=== PATIENT | male | born 1930 | race Caucasian/White ===

== ENCOUNTER 2017-09-08 08:13 | Inpatient (IN) ==
[2017-09-06 17:30] LABS: Basophils # (Auto) 0 K/mcL (0.0-0.3); Basophils % (Auto) 0.5 % (0.0-2.0); Eosinophils # (Auto) 0.4 K/mcL (0.0-0.7); Eosinophils % (Auto) 4.3 % (0.0-7.0); Granulocytes % (Auto) 59.7 % (38.0-78.0); Lymphocytes # (Auto) 1.8 K/mcL (1.5-4.8); Mean Cell Volume 91.8 fL (80.0-100.0); Mean Corpuscular HGB Conc 33.5 g/dL (31.0-36.0); Mean Corpuscular Hemoglobin 30.7 pg (26.0-34.0); Monocytes # (Auto) 1.1 K/mcL (0.1-0.9); Monocytes % (Auto) 13.5 % (1.0-12.0); Platelet Count 346 K/mcL (140-440); RBC 4.91 M/mcL (4.50-5.90); Red Cell Distribution Width 13.9 % (11.5-14.5)
[2017-09-06 17:50] LABS: Blood Urea Nitrogen 21 mg/dl (8-23)
[2017-09-06 17:57] LABS: Appearance,Urine CLEAR; Bacteria,Urine 0 /hpf (0); Bilirubin,Urine NEG (NEG); Color,Urine YELLOW; Glucose,Urine (UA) NEGATIVE (NEG); Leukocyte Esterase,Urine NEG /uL (NEG); Mucus,Urine MANY /hpf (0); Nitrate,Urine NEG (NEG); Protein,Urine NEG (NEG); Specific Gravity,Urine 1.027 (1.000-1.035); Urine Blood NEG mg/dL (<0.03); Urine RBC < 1 /hpf (0-1); Urine Squamous Epithelial Cell 0 /hpf (0-4); Urine WBC 1 /hpf (0-4)
[2017-09-08] MEDS ORDERED: 0.9 % SODIUM CHLORIDE 250 ML IV SCH (08:30)
[2017-09-08] MEDS ORDERED: oxyCODONE 10 MG TAB.ER.12H PO SCH (08:45)
[2017-09-08] MEDS ORDERED: CELECOXIB 200 MG CAPSULE PO SCH (08:45)
[2017-09-08] MEDS ORDERED: KETOROLAC 30 MG, ROPIVACAINE HCL/PF 49.5 ML, EPINEPHrine 0.5 MG, 0.9 % SODIUM CHLORIDE ... IJ ONE (09:00)
[2017-09-08] MEDS ORDERED: PREGABALIN 75 MG CAPSULE PO SCH (09:00)
[2017-09-08] MEDS ORDERED: ceFAZolin 1 GM VIAL IV SCH (09:00)
[2017-09-08] MEDS ORDERED: GLYCOPYRROLATE 0.2 MG/ML VIAL IV ONE (13:40)
[2017-09-08] MEDS ORDERED: ROPIVACAINE HCL/PF 20 ML VIAL IJ ONE (13:40)
[2017-09-08] MEDS ORDERED: LIDOCAINE HCL/PF 100 MG/5 ML SYRINGE IV ONE (13:40)
[2017-09-08] MEDS ORDERED: ePHEDrine 50 MG/ML AMPUL IV ONE (13:40)
[2017-09-08] MEDS ORDERED: MIDAZOLAM 5 MG/5 ML VIAL IV ONE (13:40)
[2017-09-08] MEDS ORDERED: DEXAMETHASONE 10 MG/ML VIAL IV ONE (13:40)
[2017-09-08] MEDS ORDERED: PHENYLEPHRINE 10 MG/ML VIAL IV ONE (13:40)
[2017-09-08] MEDS ORDERED: TRANEXAMIC ACID 1,000 MG/10 ML VIAL IV ONE (13:40)
[2017-09-08] MEDS ORDERED: PROPOFOL 200 MG/20 ML VIAL IV ONE (13:40)
[2017-09-08] MEDS ORDERED: ONDANSETRON 4 MG/2 ML VIAL IV ONE (13:40)
[2017-09-08] MEDS ORDERED: BENZOCAINE/MENTHOL 1 LOZENGE PO PRN ×2 (15:24→15:41)
[2017-09-08] MEDS ORDERED: ATROPINE SULFATE 0.4 MG/ML VIAL IV PRN (15:24)
[2017-09-08] MEDS ORDERED: METOPROLOL TARTRATE 5 MG/5 ML VIAL IV PRN (15:24)
[2017-09-08] MEDS ORDERED: ONDANSETRON 4 MG/2 ML VIAL IV PRN ×2 (15:24→15:41)
[2017-09-08] MEDS ORDERED: NALOXONE HCL 0.4 MG/ML VIAL IV PRN (15:24)
[2017-09-08] MEDS ORDERED: fentaNYL 100 MCG/2 ML VIAL IV PRN (15:24)
[2017-09-08] MEDS ORDERED: PROMETHAZINE 25 MG/ML VIAL IV PRN (15:24)
[2017-09-08] MEDS ORDERED: diphenhydrAMINE 50 MG/ML VIAL IV PRN (15:24)
[2017-09-08] MEDS ORDERED: METHOCARBAMOL 1,000 MG/10 ML VIAL IV PRN (15:24)
[2017-09-08] MEDS ORDERED: FLUMAZENIL 0.1 MG/ML ML IV PRN (15:24)
[2017-09-08] MEDS ORDERED: ePHEDrine 50 MG/ML AMPUL IV PRN (15:24)
[2017-09-08] MEDS ORDERED: IPRATROPIUM/ALBUTEROL 3 ML AMPUL.NEB NEB PRN (15:24)
[2017-09-08] MEDS ORDERED: LACTATED RINGERS 1,000 ML IV SCH (15:30)
[2017-09-08] MEDS ORDERED: FLEETS ADULT ENEMA PR PRN (15:41)
[2017-09-08] MEDS ORDERED: TRANEXAMIC ACID 1,000 MG/10 ML VIAL IV SCH (15:41)
[2017-09-08] MEDS ORDERED: POLYETHYLENE GLYCOL 3350 17 GM PACKET PO PRN (15:41)
[2017-09-08] MEDS ORDERED: MAGNESIUM HYDROXIDE 30 ML ORAL.SUSP PO PRN (15:41)
[2017-09-08] MEDS ORDERED: BISACODYL 10 MG SUPP.RECT PR PRN (15:41)
[2017-09-08] MEDS ORDERED: HYDROmorphone 2 MG/ML SYRINGE IV PRN (15:41)
--- NOTE | 2017-09-08 15:41 | Brief Operative Note ---
Date of procedure: 09/08/17 Pre-op diagnosis: Left knee severe DJD Post-op diagnosis: same Procedure: Left robotic assisted total knee arthroplasty Grafts/Implants: Yes ([place] [facility] Triathlon CR 5 femur, 5 tibia, 11 CS insert, 36 patella) Anesthesia: spinal, GLMA Findings: severe multicompartment arthritis Complications: none Surgeon: Salvador De La Vega Custom Tailor: Stanley Mata Estimated blood loss (cc): 30 Specimens Removed/Pathology: none sent Condition: stable Disposition: PACU
--- NOTE | 2017-09-08 16:34 | XRay Report ---
CLINICAL INFORMATION: Postsurgical follow-up TECHNIQUE: AP, lateral, patellar views COMPARISON: None. FINDINGS: Status post right total knee arthroplasty. Femoral and tibial complements are in anatomic positions. There is postsurgical soft tissue and intra-articular gas. There are skin hilary anteriorly IMPRESSION: Status post left total knee arthroplasty Interpreted and Authenticated by: Idris Cotter 09/08/17
[2017-09-08] MEDS: 0.9 % SODIUM CHLORIDE 1,000 ML IV SCH (16:56)
[2017-09-08] MEDS: KETOROLAC 15 MG/ML VIAL IV SCH ×2 (17:54→23:46)
[2017-09-08] MEDS ORDERED: ATORVASTATIN 20 MG TABLET PO SCH (21:00)
[2017-09-08] MEDS ORDERED: SENNOSIDES 1 TABLET PO SCH (21:00)
[2017-09-08] MEDS: HYDROCODONE/APAP 7.5/325MG TABLET PO PRN (21:36)
[2017-09-08] MEDS: ceFAZolin 1 GM VIAL IV SCH (21:36)
[2017-09-08] MEDS: DOCUSATE SODIUM 100 MG CAPSULE PO SCH (21:37)
[2017-09-08] MEDS: ASPIRIN 325 MG ENTERIC COATED TABLET PO SCH (21:37)
[2017-09-08] MEDS: 0.9 % SODIUM CHLORIDE 10 ML SYRINGE IV SCH (21:39)
[2017-09-09] MEDS: 0.9 % SODIUM CHLORIDE 1,000 ML IV SCH ×2 (01:27→09:12)
[2017-09-09] MEDS: HYDROCODONE/APAP 7.5/325MG TABLET PO PRN ×3 (03:51→12:45)
[2017-09-09] MEDS: ceFAZolin 1 GM VIAL IV SCH (05:34)
[2017-09-09] MEDS: KETOROLAC 15 MG/ML VIAL IV SCH ×2 (05:35→12:40)
[2017-09-09] MEDS: 0.9 % SODIUM CHLORIDE 10 ML SYRINGE IV SCH (06:00)
--- NOTE | 2017-09-09 08:55 | Orthopedic Progress Note ---
Subjective Patient information: Note initiated : 09/09/17 at 8:55 am Service Date, if different from initiated Date: [] Patient: Fredy Perkins 86 y/o M admitted on 09/08/17 for Lt Uni Medial Julius Knee vs Total Knee Arthroplasty. Chief Complaint: [] Principal diagnosis: s/p L TKA Objective Vital signs: Vital Signs Temp Pulse Pulse Resp BP BP Pulse Ox 09/09/17 07:02 20 92 09/09/17 06:18 97.6 F 20 126/75 92 09/09/17 03:40 97.4 F 62 18 119/76 94 09/08/17 23:51 97.3 F 55 L 16 108/64 93 09/08/17 19:07 121/68 94 09/08/17 18:58 97 F 55 L 14 106/61 92 09/08/17 18:03 114/63 97 09/08/17 17:35 120/65 09/08/17 17:20 133/71 09/08/17 17:05 145/65 90 09/08/17 16:50 96.1 F L 20 134/73 93 09/08/17 16:26 68 14 130/62 99 09/08/17 16:11 56 L 12 112/59 96 09/08/17 16:05 97.4 F 54 L 10 L 115/58 94 09/08/17 15:42 68 09/08/17 09:02 98.1 F 50 L 18 138/69 95 Intake and Output 09/08/17 09/09/17 09/09/17 21:59 05:59 13:59 Intake Total 2099 Output Total 275 / 275 450 / 450 Balance 1825 / 1825 1510 / 1510 Intake: IV 2099 1000 / 1000 Sodium Chloride 0.9% 1,000 ml @ 1000 / 1000 125 mls/hr IV .Q8H [facility] Rx#: [id number] Oral 960 / 960 Output: Urine Catheter Amount 275 / 275 Void Amount 450 / 450 Other: Weight 192 lb 9.6 oz Intake & Output: Intake & Output 09/08/17 09/09/17 09/09/17 21:59 05:59 13:59 Intake Total 2099 Output Total 275 / 275 450 / 450 Balance 1825 / 1825 1510 / 1510 Weight 192 lb 9.6 oz Intake: IV 2100 / 2100 1000 / 1000 Sodium Chloride 0.9% 1,000 ml @ 1000 / 1000 125 mls/hr IV .Q8H [facility] Rx#: [id number] Oral 960 / 960 Output: Urine Catheter Amount 275 / 275 Void Amount 450 / 450 - Labs CBC & BMP: 09/09/17 04:55 09/06/17 16:38 Labs: 09/09/17 09/06/17 04:55 16:39 Hgb 14.2 15.1 Hct 43.1 45.0
--- NOTE | 2017-09-09 08:58 | Discharge Summary ---
Ortho Discharge - TKA - Patient Instructions Diet: Regular Diet Activity: weight bearing as tolerated Total Knee Protocol: For Total Knee: Start ROM YONG with stationary bike or rocking chair. Work on gaining full extension of knee. Posterior dislocation precautions provided. Hip abductor strengthening and gait training instructions provided. Apply Cryocuff as instructed. Dressing Care: May shower in 2 days (from surgery), Aquacel Ag - leave on for 5 days Patient Education: Total Knee Replacement (DC) Additional Instructions: Discharge Instructions: Do the exercises at home that physical therapy gave you. Take your prescription, photo ID, insurance cards, and current medication list with you to your first physical therapy appointment. Take your prescription to orange picking supervisor any medication or equipment (such as walker, crutches, toilet riser or C.P.M.) Wear comfortable clothing for your physical therapy. Weight bearing as tolerated. You have the Aquacel Ag dressing, leave in place for 7 days then remove. If dressing becomes soiled (turns black), remove and use gauze 4x4 dressing and silvasorb ointment and change daily. Keep incision clean and dry. You may start showering on post op day #2. To avoid constipation while taking any narcotic pain medication, take an over the counter stool softener/laxative. Use your Cryocuff or ice packs as directed, on for 20 minutes at a time throughout the day. This and elevation will help with pain and swelling. Call your physician for fevers above 100.5 or pain not controlled by medication. Your prescriptions are with your discharge information. Some medications were electronically transmitted to your pharmacy of choice. - Follow Up Plan Follow Up Appointments: Salvador De La Vega MD [Physician] - 09/18/17 9:00 am Disposition: Home, Self-Care Prognosis: Good Rehab Potential: Good - Orders For Discharge Additional Discharge Orders: Physical Therapy at Discharge - TKA Location: Determined By Patient Toilet Riser Discharge Order Location: Determined By Patient Walker Location: Determined By Patient
[2017-09-09] MEDS ORDERED: ATENOLOL 50 MG TABLET PO SCH (09:00)
[2017-09-09] MEDS ORDERED: MULTIVIT,THER IRON,CA,FA & MIN 1 TABLET PO SCH (09:00)
[2017-09-09] MEDS ORDERED: OXYBUTYNIN CHLORIDE 5 MG TAB.XL.24H PO SCH (09:00)
[2017-09-09] MEDS ORDERED: LOSARTAN 50 MG TABLET PO SCH (09:00)
[2017-09-09] MEDS ORDERED: amLODIPine 10 MG TABLET PO SCH (09:00)
[2017-09-09] MEDS ORDERED: hydrALAZINE 25 MG TABLET PO SCH (09:00)
[2017-09-09] MEDS: ASPIRIN 325 MG ENTERIC COATED TABLET PO SCH (09:16)
[2017-09-09] MEDS: DOCUSATE SODIUM 100 MG CAPSULE PO SCH (09:16)
--- NOTE | 2017-09-28 08:59 | Operative Note ---
DATE OF OPERATION: 09/08/2017 PREOPERATIVE DIAGNOSIS: Left knee severe osteoarthritis. POSTOPERATIVE DIAGNOSIS: Left knee severe osteoarthritis. PROCEDURE PERFORMED: Left robotic-assisted total knee arthroplasty using a [employer] Triathlon cruciate retaining size 5 femoral component, size 5 tibial baseplate, an 11 mm CS tibial insert with a 36 mm patellar button. SURGEON: Salvador De La Vega MD. DIRECTOR OF ESTATE: Avel Mata PA-C. ANESTHESIA: Spinal plus general. DRAINS: None. SPECIMENS: Bone cuts, which were discarded. BLOOD LOSS: Less than 30 mL COMPLICATIONS: None. POSTOPERATIVE CONDITION: Stable. INDICATIONS FOR SURGERY: This is an 86-year-old male who has had progressive worsening longstanding knee pain. Radiographs showed severe [id number] arthrosis. FINDINGS AT SURGERY: As above; in addition a very large meniscal tear. Post implantation showed good overall limb alignment, stability, and patellar tracking. PROCEDURE IN DETAIL: The patient was seen preoperatively. Informed consent was obtained after discussion of risks and benefits of surgery. Risks including, but not limited to, bleeding, possibly requiring transfusion; infection, possibly requiring implant removal and prolonged IV antibiotics; injury to nerves, blood vessels, and other surrounding structures; anesthetic risks; incomplete or no resolution of symptoms; stiffness; pain; instability; DVT and pulmonary embolus risks; and the possibility of needing further revision surgery. He understood these risks and wished to proceed. Correct operative site was marked. The patient was taken to the operating room. General anesthesia was induced after spinal anesthesia had been given in preoperative holding. The left lower extremity was carefully prepped and draped in normal sterile fashion and a time-out was performed verifying patient name, operative site, and plan. Esmarch was used to exsanguinate the extremity and tourniquet was inflated. Midline incision was made with a scalpel through skin and subcutaneous tissue. IrriSept was irrigated and then a medial parapatellar arthrotomy made. Subperiosteal exposure was done of the anteromedial tibia and distal anterior cortex of the femur and retropatellar fat pad was removed and ACL was transected. Anterior horns of the menisci were removed. Two stab incisions were made over the tibia and two over the femur and 4 bicortical pins were placed and the arrays were connected. We also placed femoral and tibial checkpoints. We then did our hip center of rotation check as well as medial and lateral malleoli and double checked with green probe on the checkpoints. We then did our blue probe mapping and then a rongeur was used to remove osteophytes. We then did our ligament balance checks at flexion and extension. We then adjusted the implant on the computer to equalize the gaps at 17 mm. We then locked this into the computer and then did our bone cuts using the robotic assistance. The tibia was rotated according to the plan and marked and then we prepared the tibia with the boss reamer and keel punch. Keeled tibial trial was placed. Then, the femur was elevated and posterior osteophytes were removed with a curved osteotome and curet. The femoral trial was placed and the pedicles drilled. We then placed a trial insert. Patella was cut freehand and then medialized and holes drilled for the 36 mm patella. We placed the patellar trial and performed a limited lateral facetectomy. We checked our patellar tracking, which was good, so we went ahead and opened implants. We removed the trial implants. IrriSept was irrigated and after a minute copious pulse lavage and then the CO2 gun was used to clean the cancellous bone surfaces. Antibiotic cement was used to cement the tibia followed by the femur. A 9 insert trial was placed and the knee was taken into extension. Excess cement was removed. The patellar button was cemented. We then filled the joint with IrriSept and while cement hardened we injected pain cocktail into the pericapsular and subcutaneous tissues. We then pulse lavaged copiously with saline and then flexed the knee up. We felt we could tension the knee up a little better so we went up to 11. We trialed the 11 insert which improved stability, so we went ahead and opened 11 insert. The trial was removed. Posterior capsule was injected with pain cocktail and then IrriSept irrigated and then the insert was impacted. A final pulse lavaged was done and then the knee was placed in 45 degrees of flexion. Interrupted [id number] were used, #2 FiberWire around the superior quadrant of the patella. The inferior quadrant was closed with interrupted #1 Vicryl [id number] and running #1 Vicryl was used for patellar tendon and quad tendon. Final IrriSept irrigation was done, after a minute final pulse lavage and then 2-0 Monocryl for subcutaneous and hilary. Checkpoints had been removed prior to closure. We then went ahead and removed the pins for the arrays and hilary used for closing those. We used Xeroform and a sterile dressing was applied and then tourniquet was released. The patient was awakened, extubated, and transferred to recovery in stable condition. FRANCOIS:carlos Job ID: [id number] Doc ID: [id number] Salvador De La Vega MD
== END 2017-09-09 14:10 | disposition home or self-care (01) | DRG 470 ==
LOC: SUR 08:13 → MEDSUR 16:42
PROVIDERS: ADMIT Orthopaedic Surgery; ATTEND Orthopaedic Surgery